=== PATIENT | male | born 1970 | race Caucasian/White ===

== ENCOUNTER 2016-12-18 13:46 | Emergency (ER) | payer OTHER ==
[2016-12-18 14:15] VITALS: PULSE 98; RESP 18; TEMP 98.3
--- NOTE | 2016-12-18 14:54 | ED ---
General Adult HPI - General Chief complaint: Chest Pain Stated complaint: Fall/Rib Pain Time Seen by Provider: 12/18/16 14:47 Source: patient, RN notes reviewed Mode of arrival: ambulatory Limitations: no limitations - History of Present Illness Initial comments: Patient 46-year-old male who presents emergency room today with a chief complaint of injury to the right side of his ribs 2 days. Patient states 2 days ago his brother's large dog jumped on him pushing backwards hitting his right ribs on the, and states he's had pain locally to this area. States that worse with cough, sneeze, certain movements. States using [id number] ibuprofen with little relief the symptoms. Patient denies any recent fever, chills, shortness of breath, chest pain, back pain, abdominal pain, nausea or vomiting, numbness or tingling, dysuria or hematuria, constipation or diarrhea, headaches or visual changes, or any other complaints. - Related Data Previous Rx's Medication Instructions Recorded Pantoprazole Sodium [Protonix] 40 mg PO ONCE #35 tablet. 09/22/14 Hydrocodone/Acetaminophen [[place] 1 each PO Q6HR PRN #20 tab 12/18/16 5-325] Ibuprofen [Motrin] 800 mg PO Q6HR PRN #30 tab 12/18/16 Allergies Allergy/AdvReac Type Severity Reaction Status Date / Time codeine Allergy Unknown Verified 12/18/16 14:15 venom-honey bee Allergy Unknown Verified 12/18/16 14:15 [bee venom (honey bee)] Cat Dander Allergy Unknown Uncoded 12/18/16 14:15 Review of Systems ROS Statement: Those systems with pertinent positive or pertinent negative responses have been documented in the HPI. ROS Other: All systems not noted in ROS Statement are negative. Past Medical History Additional Past Medical History / Comment(s): ULCER History of Any Multi-Drug Resistant Organisms: None Reported Past Surgical History: No Surgical Hx Reported Smoking Status: Current every day smoker Past Alcohol Use History: Occasional Past Drug Use History: None Reported General Exam - General Exam Comments Initial Comments: General: The patient is awake and alert, in no distress, and does not appear acutely ill. Eye: Pupils are equal, round and reactive to light, extra-ocular movements are intact. No nystagmus. There is normal conjunctiva bilaterally. No signs of icterus. Ears, nose, mouth and throat: There are moist mucous membranes and no oral lesions. Neck: The neck is supple, there is no tenderness or JVD. Cardiovascular: There is a regular rate and rhythm. No murmur, rub or gallop is appreciated. Respiratory: Lungs are clear to auscultation, respirations are non-labored, breath sounds are equal. No wheezes, stridor, rales, or rhonchi. Gastrointestinal: Soft, non-distended, non-tender abdomen without masses or organomegaly noted. There is no rebound or guarding present. No CVA tenderness. Bowel sounds are unremarkable. Musculoskeletal: Does have tenderness to the right lateral ribs. Bruising noted. Strength 5/5. Sensation intact. Pulses equal bilaterally 2+. Neurological: A&O x 3. CN II-XII intact, There are no obvious motor or sensory deficits. Coordination appears grossly intact. Speech is normal. Skin: Skin is warm and dry and no rashes or lesions are noted. Psychiatric: Cooperative, appropriate mood & affect, normal judgment. Limitations: no limitations Course Vital Signs 12/18/16 12/18/16 14:12 14:52 Temperature 98.3 F Pulse Rate 98 Respiratory 18 Rate Blood Pressure 168/116 135/82 O2 Sat by Pulse 97 Oximetry Medical Decision Making - Medical Decision Making X-ray reviewed does show evidence for possible nondisplaced right eighth rib fracture. No other acute abnormalities. Results were discussed with the patient. A be discharged home with pain medication. Advised that pain medicines may make him drowsy and not to use while at work. Patient states understanding and is in agreement. Disposition Clinical Impression: Closed traumatic nondisplaced fracture of rib Disposition: HOME SELF-CARE Condition: Good Instructions: Rib Fracture (ED) Additional Instructions: Please use medication as discussed. Please follow-up with family doctor in the next 2 days of symptoms have not improved. Please return to emergency room if the symptoms increase or worsen or for any other concerns. Prescriptions: Hydrocodone/Acetaminophen [[place] 5-325] 1 each PO Q6HR PRN #20 tab PRN Reason: Pain Ibuprofen [Motrin] 800 mg PO Q6HR PRN #30 tab PRN Reason: Pain Time of Disposition: 15:27
[2016-12-18 14:56] VITALS: BP 135/82
--- NOTE | 2016-12-18 15:17 | XR ---
EXAMINATION TYPE: XR chest 2V DATE OF EXAM: 12/18/2016 3:08 PM COMPARISON: NONE INDICATION: Right rib injury, pain TECHNIQUE: Single frontal view of the chest is obtained. FINDINGS: The heart size is normal. The pulmonary vasculature is normal. The lungs are clear. No pneumothorax is evident. Displaced rib fractures are not identified. Nondisplaced rib fracture of the posterior lateral rib is not excluded. This is likely artifact. IMPRESSION: 1. No acute pulmonary process. 2. Nondisplaced right eighth rib fracture is not entirely excluded. However, this is likely artifact extending beyond the cortical margin. Rib study can be performed if additional dedicated evaluation w ould be of benefit.
== END 2016-12-18 15:34 | disposition home or self-care (01) ==
LOC: EC 13:46
DX: S22.31XA Fracture of one rib, right side, initial encounter for closed fracture (principal); J30.81 Allergic rhinitis due to animal (cat) (dog) hair and dander; X58.XXXA Exposure to other specified factors, initial encounter; F17.200 Nicotine dependence, unspecified, uncomplicated; Z79.899 Other long term (current) drug therapy; Z88.5 Allergy status to narcotic agent; Z91.030 Bee allergy status; Z87.19 Personal history of other diseases of the digestive system
CPT/HCPCS: 71020; 99284

== ENCOUNTER 2018-12-09 15:38 | Emergency (ER) | payer OTHER ==
[2018-12-09 15:42] VITALS: BP 151/85; PULSE 91; RESP 16; TEMP 97.8
[2018-12-09] MEDS ORDERED: LORazepam 1 MG TAB PO STA (16:15)
--- NOTE | 2018-12-09 16:20 | ED ---
General Adult HPI - General Chief complaint: Psychiatric Symptoms Stated complaint: Depression Time Seen by Provider: 12/09/18 15:44 Source: patient, RN notes reviewed Mode of arrival: ambulatory Limitations: no limitations - History of Present Illness Initial comments: Patient is a pleasant 48-year-old male presenting to the emergency Department with complaints of depression. Symptoms have progressed over the past several months. Patient states he is sleeping a lot. Patient lacks motivation. Patient has not been eating as much is normal. Rare alcohol use. No street drug use. No new physical complaints. Patient does have associated anxiety. Patient denies suicidal or homicidal thoughts. No hallucinations. - Related Data Home Medications Medication Instructions Recorded Confirmed No Known Home Medications 12/09/18 12/09/18 Allergies Allergy/AdvReac Type Severity Reaction Status Date / Time venom-honey bee Allergy Anaphylaxis Verified 12/09/18 15:55 [bee venom (honey bee)] codeine AdvReac migraine Verified 12/09/18 15:55 Cat Dander Allergy Dyspnea Uncoded 12/09/18 15:55 Review of Systems ROS Statement: Those systems with pertinent positive or pertinent negative responses have been documented in the HPI. ROS Other: All systems not noted in ROS Statement are negative. Constitutional: Denies: fever Eyes: Denies: eye pain ENT: Denies: ear pain Respiratory: Denies: cough Cardiovascular: Denies: chest pain Endocrine: Denies: heat or cold intolerance Gastrointestinal: Denies: abdominal pain Genitourinary: Denies: dysuria Musculoskeletal: Denies: back pain Skin: Denies: rash Neurological: Denies: weakness Psychiatric: Reports: anxiety, depression. Denies: auditory hallucinations, visual hallucinations, homicidal thoughts, suicidal thoughts Past Medical History Additional Past Medical History / Comment(s): ULCER History of Any Multi-Drug Resistant Organisms: None Reported Past Surgical History: No Surgical Hx Reported Smoking Status: Current every day smoker Past Alcohol Use History: Occasional Past Drug Use History: None Reported General Exam Limitations: no limitations General appearance: alert, in no apparent distress Head exam: Present: atraumatic Eye exam: Present: normal appearance Respiratory exam: Present: normal lung sounds bilaterally Cardiovascular Exam: Present: regular rate, normal rhythm GI/Abdominal exam: Present: soft. Absent: tenderness Extremities exam: Present: normal inspection Neurological exam: Present: alert Psychiatric exam: Present: depressed Skin exam: Present: normal color Course Vital Signs 12/09/18 15:40 Temperature 97.8 F Pulse Rate 91 Respiratory 16 Rate Blood Pressure 151/85 O2 Sat by Pulse 98 Oximetry Medical Decision Making - Medical Decision Making Patient does not feel that he needs to be evaluated for placement. Patient denies suicidal thoughts. Patient states he tried to get in touch with a primary care physician however was told there was a one month wait. Patient is receptive to receiving follow-up for mental health as well as primary care and Ativan at this time. Mental health follow-up sheet was provided. Disposition Clinical Impression: Depression Disposition: HOME SELF-CARE Condition: Stable Instructions (If sedation given, give patient instructions): Depression (ED) Additional Instructions: Please follow-up with primary care physician in the next couple of days for recheck, number provided. Please follow-up with mental health services in the next couple of days, members have also been provided. Return for thoughts of self-harm, thoughts of hurting others, worsening symptoms or other concerns. Is patient prescribed a controlled substance at d/c from ED?: No Referrals: Brendon Robertson MD [STAFF PHYSICIAN] - 1-2 days Karine eMrlos MD [REFERRING] - 1-2 days Starr Casey III, MD [STAFF PHYSICIAN] - 1-2 days Time of Disposition: 16:19
== END 2018-12-09 16:34 | disposition home or self-care (01) ==
LOC: EC 15:38
DX: F32.9 Major depressive disorder, single episode, unspecified (principal); F17.200 Nicotine dependence, unspecified, uncomplicated; Z88.5 Allergy status to narcotic agent; Z91.09 Other allergy status, other than to drugs and biological substances; Z91.030 Bee allergy status
CPT/HCPCS: 99283

== ENCOUNTER 2019-01-13 15:07 | Inpatient (IN) | payer MEDICAID, OTHER ==
--- NOTE | 2019-01-13 16:42 | ED ---
General Adult HPI - General Source: patient, RN notes reviewed Mode of arrival: ambulatory Limitations: no limitations <Junior Harrison - Last Filed: 01/13/19 15:19> <Duke Banuelos - Last Filed: 01/13/19 18:39> - General Chief complaint: Psychiatric Symptoms Stated complaint: depression Time Seen by Provider: 01/13/19 15:07 - History of Present Illness Initial comments: This a 48-year-old male presents emergency department with past medical history significant for depression. Patient comes in today because he states that last few months is becoming more more depressed and is having more pressures his personal life and he is starting to think about suicide. Patient states he doesn't want to do it that is why he arrived here today. Patient denies any attempt recently. Patient states he did not take any pills he does not do any illegal drugs to does not drink. Patient denies any previous suicide attempt. Patient denies any physical complaints today. Patient denies headache patient denies numbness or weakness. Patient denies chest pain difficult breathing shortness of breath per patient denies any palpitations. Patient denies abdominal pain patient denies nausea vomiting diarrhea. (Junior Harrison) - Related Data Home Medications Medication Instructions Recorded Confirmed Omeprazole 20 mg PO BID 01/13/19 01/13/19 Ranitidine HCl [Zantac] 150 mg PO BID 01/13/19 01/13/19 buPROPion HCL [Wellbutrin SR] 150 mg PO BID 01/13/19 01/13/19 busPIRone HCl [Buspar] 10 mg PO TID 01/13/19 01/13/19 traZODone HCL [Desyrel] 1 - 2 tab PO HS 01/13/19 01/13/19 Allergies Allergy/AdvReac Type Severity Reaction Status Date / Time venom-honey bee Allergy Anaphylaxis Verified 01/13/19 15:50 [bee venom (honey bee)] codeine AdvReac migraine Verified 01/13/19 15:50 Cat Dander Allergy Dyspnea Uncoded 01/13/19 15:11 Review of Systems ROS Other: All systems not noted in ROS Statement are negative. <Junior Harrison - Last Filed: 01/13/19 15:19> ROS Other: All systems not noted in ROS Statement are negative. <Duke Banuelos - Last Filed: 01/13/19 18:39> ROS Statement: Those systems with pertinent positive or pertinent negative responses have been documented in the HPI. Past Medical History Additional Past Medical History / Comment(s): ULCER History of Any Multi-Drug Resistant Organisms: None Reported Past Surgical History: No Surgical Hx Reported Past Psychological History: Depression Smoking Status: Current every day smoker Past Alcohol Use History: Occasional Past Drug Use History: None Reported <Junior Harrison - Last Filed: 01/13/19 15:19> General Exam Limitations: no limitations <Junior Harrison - Last Filed: 01/13/19 15:19> - General Exam Comments Initial Comments: GENERAL: Patient is well-developed and well-nourished. Patient is nontoxic and well- hydrated and is in no acute distress. ENT: Neck is soft and supple. Oropharynx is clear. Moist mucous membranes. Neck has full range of motion without eliciting any pain. EYES: The sclera were anicteric and conjunctiva were pink and moist. Extraocular movements were intact and pupils were equal round and reactive to light. Eyelids were unremarkable. PULMONARY: Unlabored respirations. Good breath sounds bilaterally. No audible rales rhonchi or wheezing was noted. CARDIOVASCULAR: There is a regular rate and rhythm without any murmurs gallops or rubs. ABDOMEN: Soft and nontender with normal bowel sounds. SKIN: Skin is clear with no lesions or rashes and otherwise unremarkable. NEUROLOGIC: Patient is alert and oriented x3. Cranial nerves II through XII are grossly intact. Motor and sensory are also intact. Normal speech, volume and content. Symmetrical smile. MUSCULOSKELETAL: Normal extremities with adequate strength and full range of motion. PSYCHIATRIC: Patient states he is depressed and his been having some suicidal ideations. Patient is a very flat affect (Junior Harrison) Course <Duke Banuelos - Last Filed: 01/13/19 18:39> Vital Signs 01/13/19 15:07 Temperature 97.6 F Pulse Rate 92 Respiratory 18 Rate Blood Pressure 153/91 O2 Sat by Pulse 97 Oximetry - Reevaluation(s) Reevaluation #1: 01/13/19 18:34 The patient was endorsed me by Dr. Harrison at her shift change and was pending evaluation by EPS. Patient will be admitted to this facility for treatment of depression. 01/13/19 18:35 (Duke Banuelos) Medical Decision Making <Junior Harrison - Last Filed: 01/13/19 15:19> - Medical Decision Making Dr. Banuelos will be taking over the care at 5 PM (Junior Harrison) Disposition <Junior Harrison - Last Filed: 01/13/19 15:19> <Duke Banuelos - Last Filed: 01/13/19 18:39> Clinical Impression: Depression Disposition: TRANSFER TO PSYCH HOSP/UNIT Condition: Stable
[2019-01-13 18:36] LABS: Amphetamine Screen,Urine Not Detected (NotDetected); Barbiturate Screen,Urine Not Detected (NotDetected); Benzodiazepines Screen,Urine Not Detected (NotDetected); Cocaine Screen,Urine Not Detected (NotDetected); Methadone Screen, Urine Not Detected (NotDetected); Opiate Screen,Urine Not Detected (NotDetected); Oxycodone Screen, Urine Not Detected (NotDetected); Phencyclidine Screen,Urine Not Detected (NotDetected); Tricyclic Antidepressant,Urine Not Detected (NotDetected); Urn Cannabinoid Scrn Not Detected (NotDetected)
[2019-01-13] MEDS ORDERED: ACETAMINOPHEN TAB 325 MG TAB PO PRN (19:38)
[2019-01-13] MEDS ORDERED: MAGNESIUM HYDROXIDE 2,400 MG/10 ML CUP PO PRN (19:38)
[2019-01-13] MEDS ORDERED: ZIPRASIDONE 20 MG VIAL IM PRN (19:38)
[2019-01-13] MEDS ORDERED: LORazepam 2 MG/ML INJ IM PRN (19:43)
[2019-01-13] MEDS: buPROPion SR 150 MG TABLET.ER PO SCH (20:45)
[2019-01-13] MEDS: busPIRone HCl 10 MG TAB PO SCH (20:45)
[2019-01-13] MEDS: NICOTINE 14MG/24HR PATCH TRANSDERM SCH (21:24)
[2019-01-14] MEDS: NICOTINE 14MG/24HR PATCH TRANSDERM SCH (08:32)
[2019-01-14] MEDS: PANTOPRAZOLE 40 MG TABLET PO SCH (08:32)
[2019-01-14] MEDS: busPIRone HCl 10 MG TAB PO SCH (08:32)
[2019-01-14] MEDS: buPROPion SR 150 MG TABLET.ER PO SCH ×2 (08:32→20:51)
[2019-01-14 09:44] LABS: Basophils % (A) 1 %; Eosinophils # (A) 0.2 k/uL (0-0.7); Eosinophils % (A) 3 %; HCT 44.9 % (39.0-53.0); HGB 15.3 gm/dL (13.0-17.5); Lymphocytes # (A) 1.9 k/uL (1.0-4.8); Lymphocytes % (A) 31 %; MCH 31.1 pg (25.0-35.0); MCV 91.3 fL (80.0-100.0); Mean Platelet Volume 9.3; Monocytes # (A) 0.5 k/uL (0-1.0); Monocytes % (A) 9 %; Neutrophils # (A) 3.2 k/uL (1.3-7.7); Neutrophils % (A) 55 %; Platelet Count 165 k/uL (150-450); RBC 4.92 m/uL (4.30-5.90); RDW 14.1 % (11.5-15.5); WBC 5.9 k/uL (3.8-10.6)
[2019-01-14 09:48] LABS: Albumin 4.2 g/dL (3.5-5.0); Bilirubin, Delta 0.2 mg/dL (0.0-0.2); Bilirubin,Unconjugated 0.7 mg/dL (0.0-1.1); Calcium 9.4 mg/dL (8.4-10.2); Total Bilirubin 0.9 mg/dL (0.2-1.3); Total Protein 6.9 g/dL (6.3-8.2)
--- NOTE | 2019-01-14 11:16 | P.HP ---
Psychiatric H&P - . H&P Date: 01/21/19 History & Physical: Allergies Allergy/AdvReac Type Severity Reaction Status Date / Time venom-honey bee Allergy Anaphylaxis Verified 01/13/19 15:50 [bee venom (honey bee)] codeine AdvReac migraine Verified 01/13/19 15:50 Cat Dander Allergy Dyspnea Uncoded 01/13/19 15:11 Vital Signs Temp 98.0 F 01/14/19 06:07 Pulse 71 01/14/19 06:07 Resp 14 01/14/19 06:07 BP 90/53 01/14/19 06:07 Pulse Ox 97 01/13/19 19:24 Intake & Output 01/13/19 01/14/19 01/14/19 18:59 06:59 18:59 Weight 99.79 kg Laboratory Last Values Urine Opiates Screen Not Detected (NotDetected) 01/13/19 17:05 Ur Oxycodone Screen Not Detected (NotDetected) 01/13/19 17:05 Urine Methadone Screen Not Detected (NotDetected) 01/13/19 17:05 Ur Propoxyphene Screen Not Detected (NotDetected) 01/13/19 17:05 Ur Barbiturates Screen Not Detected (NotDetected) 01/13/19 17:05 U Tricyclic Antidepress Not Detected (NotDetected) 01/13/19 17:05 Ur Phencyclidine Scrn Not Detected (NotDetected) 01/13/19 17:05 Ur Amphetamines Screen Not Detected (NotDetected) 01/13/19 17:05 U Methamphetamines Scrn Not Detected (NotDetected) 01/13/19 17:05 U Benzodiazepines Scrn Not Detected (NotDetected) 01/13/19 17:05 Urine Cocaine Screen Not Detected (NotDetected) 01/13/19 17:05 U Marijuana (THC) Screen Not Detected (NotDetected) 01/13/19 17:05 Assessment and Plan Assessment: This a 48-year-old male presents emergency department with past medical history significant for depression. Patient comes in today because he states that last few months is becoming more more depressed and is having more pressures his personal life and he is starting to think about suicide. Patient states he doesn't want to do it that is why he arrived here today. Patient denies any attempt recently. Patient states he did not take any pills he does not do any illegal drugs to does not drink. Patient denies any previous suicide attempt. Patient denies any physical complaints today. Patient denies headache patient denies numbness or weakness. Patient denies chest pain difficult breathing shortness of breath per patient denies any palpitations. Patient denies abdominal pain patient denies nausea vomiting diarrhea. - Related Data Home Medications Medication Instructions Recorded Confirmed Omeprazole 20 mg PO BID 01/13/19 01/13/19 Ranitidine HCl [Zantac] 150 mg PO BID 01/13/19 01/13/19 buPROPion HCL [Wellbutrin SR] 150 mg PO BID 01/13/19 01/13/19 busPIRone HCl [Buspar] 10 mg PO TID 01/13/19 01/13/19 traZODone HCL [Desyrel] 1 - 2 tab PO HS 01/13/19 01/13/19 Allergies Allergy/AdvReac Type Severity Reaction Status Date / Time venom-honey bee Allergy Anaphylaxis Verified 01/13/19 15:50 [bee venom (honey bee)] codeine AdvReac migraine Verified 01/13/19 15:50 Cat Dander Allergy Dyspnea Uncoded 01/13/19 15:11 Past Medical History Additional Past Medical History / Comment(s): ULCER History of Any Multi-Drug Resistant Organisms: None Reported Past Surgical History: No Surgical Hx Reported Past Psychological History: Depression Smoking Status: Current every day smoker Past Alcohol Use History: Occasional Past Drug Use History: None Reported Musculoskeletal Examination - Abnormal/Involuntary Movements: [ tremors] Strength: [greater than antigravity (greater than/equal to 3/5) in all extremities:] Muscle Tone: [no impairment Gait: [grossly normal Station: [grossly normal Mental Status Examination - General Appearance: [ casual, appears older than stated age Speech/Language: [spontaneous soft] Attitude/Behavior: [cooperative, guarded, irritable, withdrawn, indifferent] Mood: [depressed 5/10, anxious 2/10, irritable, angry, fearful, hopelessness] Affect: [ flat, labile, blunted constricted] Orientation: [time, person, place situation] Thought Content: [wnl Risk Factors: [yes within the last week suicidal (ideation) Perception: [wnl, denies hallucinations (auditory, visual, tactile), other] Thought Processes: [ concrete, circumstantial, tangential] Concentration/Attention Span: [ impaired] [Per observation and interview with the patient] Recent Memory: [ impaired] [0 out of 3 in 3 minutes] Remote Memory: [wnl [past events, as related history] Intelligence: [ average] [based on history, based on vocabulary, syntax, grammar, and content] Judgement: [poor] [per patient's behavior/history of present illness] Insight: [ poor] [understanding severity of illness/history of present illness] Admitting Diagnosis: [bipolar disorder-depresed] Patient Strengths - Housing stability: [x] Able to vocalize needs: [x] Values and traditions: [x] Motivation, determination, readiness for change: [x] Setting and pursuing goals, hopes, dreams, aspirations: [x] Patient Limitations: [ pathological/unsupported environment, no interests, intellectual impairment, complicated medical illness, legal issues, lack of social supports Initial Plan of Care: [This is a 40-year-old male who was admitted on a formal [address] unit for depression, insomnia, and anxiety. He would be placed on 15 minute checks and usual protocol for that mental health unit. He'll be evaluated by medicine, psychiatry, social work, nursing staff and occupational therapy into a integrated [facility] therapeutic environment. A thorough biopsychosocial evaluation will be completed.. He is going to be started on Invega 3 mg by mouth daily at bedtime due to his racing thoughts and Lamictal 25 mg by mouth daily at bedtime for his mood instability. He'll be taken off his BuSpar and maintained on his Wellbutrin.] Estimated Length of Stay: [5 days] Initial Discharge Plan: [home, [facility], referred to therapist, partial hospital, intensive outpatient, residential placement, other] Prognosis: [ fair] Justification for Inpatient Hospitalization - [ delusions, agitation, anxiety, depression resulting in significant loss of functioning.] [Dangerous to self, others, or property with need for controlled environment.] [Emotional or behavioral conditions and complications requiring 24 hour medical and nursing care.] [Need for special drug therapy, or other therapeutic program requiring continuous hospitalization.] [Failure of social or occupational functioning.] [Inability to meet basic life and health needs.] (1) Bipolar 1 disorder Current Visit: Yes Status: Acute Priority: High Code(s): F31.9 - BIPOLAR DISORDER, UNSPECIFIED SNOMED Code(s): 256958136 Time with Patient: Greater than 30
[2019-01-14] MEDS: NICOTINE 7MG/24HR PATCH TRANSDERM SCH (19:46)
[2019-01-14] MEDS ORDERED: PRAMIPEXOLE 1 MG TAB PO SCH (21:00)
[2019-01-14] MEDS ORDERED: PALIPERIDONE 3 MG TAB.ER.24 PO SCH (21:00)
[2019-01-14] MEDS ORDERED: lamoTRIgine 25 MG TAB PO SCH (21:00)
--- NOTE | 2019-01-15 01:33 | CONS ---
CONSULTATION CHIEF COMPLAINT: Depression. HISTORY OF PRESENT ILLNESS: This gentleman presented to the emergency room with major depression and headaches. abdominal pain, nausea, vomiting. urgency, diabetes, etc. PAST MEDICAL HISTORY/FAMILY HISTORY/SOCIAL HISTORY: Otherwise unremarkable or noncontributory and can be found in his H and P. PHYSICAL EXAM: Blood pressure is 138/80. MMODL / IJN: [id number] /
--- NOTE | 2019-01-15 01:35 | CONS ---
CONSULTATION CONTINUATION: Skin color was normal. Skin is warm, dry. Lymph nodes not enlarged. Head, ears, eyes, nose, mouth, and throat were normal. Chest is clear. Cardiac exam is normal. Abdomen is soft, nontender. Extremities are normal. Neurologically he is intact. His countenance suggested depression. IMPRESSION: Major depression with suicidal thoughts. RECOMMENDATIONS: None this time. MMODL / IJN: [id number] /
[2019-01-15] MEDS: NICOTINE 7MG/24HR PATCH TRANSDERM SCH (07:54)
[2019-01-15] MEDS: NICOTINE 14MG/24HR PATCH TRANSDERM SCH (07:54)
[2019-01-15] MEDS: PANTOPRAZOLE 40 MG TABLET PO SCH (07:54)
[2019-01-15] MEDS: buPROPion SR 150 MG TABLET.ER PO SCH ×2 (07:54→20:15)
--- NOTE | 2019-01-15 11:16 | P.PN ---
Subjective Progress Note Date: 01/15/19 Principal diagnosis: bipolar disorder-depressed Chart reviewed, discussed with nursing staff, discussed in team today. I feel less likely to harm myself today still depressed and anxious but feel more encouraged. He is able to sleep right away last night but instead is sleep all night. Objective - Vital Signs Vital signs: Vital Signs Temp 98.0 F 01/15/19 06:13 Pulse 77 01/15/19 06:13 Resp 15 01/15/19 06:13 BP 110/68 01/15/19 06:13 Pulse Ox 97 01/13/19 19:24 - Labs CBC & Chem 7: 01/14/19 09:14 01/14/19 09:14 Assessment and Plan Assessment: This a 48-year-old male presents emergency department with past medical history significant for depression. Patient comes in today because he states that last few months is becoming more more depressed and is having more pressures his personal life and he is starting to think about suicide. Patient states he doesn't want to do it that is why he arrived here today. Patient denies any attempt recently. Patient states he did not take any pills he does not do any illegal drugs to does not drink. Patient denies any previous suicide attempt. Patient denies any physical complaints today. Patient denies headache patient denies numbness or weakness. Patient denies chest pain difficult breathing shortness of breath per patient denies any palpitations. Patient denies abdominal pain patient denies nausea vomiting diarrhea. - Mental Status Examination - General Appearance: [ casual, appears older than stated age Speech/Language: [spontaneous soft] Attitude/Behavior: [cooperative, guarded, irritable, withdrawn, indifferent] Mood: [depressed 5/10, anxious 2/10, irritable, angry, fearful, hopelessness] Affect: [ flat, labile, blunted constricted] Orientation: [time, person, place situation] Thought Content: [wnl Risk Factors: [yes within the last week suicidal (ideation) Perception: [wnl, denies hallucinations (auditory, visual, tactile), other] Thought Processes: [ concrete, circumstantial, tangential] Concentration/Attention Span: [ impaired] [Per observation and interview with the patient] Recent Memory: [ impaired] [0 out of 3 in 3 minutes] Remote Memory: [wnl [past events, as related history] Intelligence: [ average] [based on history, based on vocabulary, syntax, gr ammar, and content] Judgement: [poor] [per patient's behavior/history of present illness] Insight: [ poor] [understanding severity of illness/history of present illness] Admitting Diagnosis: [bipolar disorder-depressed] Patient Limitations: [ pathological/unsupported environment, no interests, intellectual impairment, complicated medical illness, legal issues, lack of social supports Initial Plan of Care: [This is a 40-year-old male who was admitted on a formal [address] unit for depression, insomnia, and anxiety. He would be placed on 15 minute checks and usual protocol for that mental health unit. He'll be evaluated by medicine, psychiatry, social work, nursing staff and occupational therapy into a integrated [facility] therapeutic environment. A thorough biopsychosocial evaluation will be completed.. He is going to be started on Invega 3 mg by mouth daily at bedtime due to his racing thoughts and Lamictal 25 mg by mouth daily at bedtime for his mood instability. He'll be taken off his BuSpar and maintained on his Wellbutrin. 01/15/2019: Chart reviewed and discussed in detail and increase of Invega to 9 mg by mouth daily at bedtime, increase Lamictal to 50 mg by mouth daily at bedtime. Maintain 15 minute checks and encourage participation in [facility] therapeutic environment including groups.] (1) Bipolar 1 disorder Current Visit: Yes Status: Acute Priority: High Code(s): F31.9 - BIPOLAR DISORDER, UNSPECIFIED SNOMED Code(s): 968579870 Time with Patient: Less than 30
[2019-01-15] MEDS: lamoTRIgine 25 MG TAB PO SCH (20:15)
[2019-01-15] MEDS: PRAMIPEXOLE 0.5 MG TAB PO SCH (20:16)
[2019-01-15] MEDS ORDERED: PALIPERIDONE 6 MG TAB.ER.24 PO SCH (21:00)
[2019-01-16] MEDS: NICOTINE 14MG/24HR PATCH TRANSDERM SCH (08:40)
[2019-01-16] MEDS: buPROPion SR 150 MG TABLET.ER PO SCH ×2 (08:40→20:13)
[2019-01-16] MEDS: PANTOPRAZOLE 40 MG TABLET PO SCH (08:40)
[2019-01-16] MEDS: NICOTINE 7MG/24HR PATCH TRANSDERM SCH ×2 (08:55→17:27)
--- NOTE | 2019-01-16 11:48 | P.PN ---
Progress Note - Text Interval history: The patient is found in his room he follows me to an interview room. He reports his mood is anxious. He's been avoiding groups as crowds will intensify his anxiety. He reports he slept last night appetite stable he plans on showering. We reviewed his psychotropic medications he had several questions. He has concerns regarding the invega. He feels that it may be causing excessive sedation. We reviewed the diagnosis given bipolar 1 disorder. Today he indicates he has had no history of hypomanic or manic episodes. We carefully reviewed criteria for each type of episode. Naturally this conversation could likely be different from the one he had with Dr. Cohen just 2 days ago. The patient states he does not wish to continue the invega as a mood stabilizer. We discussed his anxiety symptoms. He states he's been on the Wellbutrin from his primary care physician for about one month. Historically he has taken both Zoloft and Lexapro and both seem to help depression and anxiety but both were discontinued due to lack of affordability. Mental status exam: The patient is alert he is dressed in hospital attire eye contact is appropriate hygiene grooming adequate. Speech is fluent spontaneous nonpressured. He endorses an anxious mood. He reports no hopelessness thinking no suicidal ideation intent or plan. He is reporting no auditory or visual hallucinations or any specific delusions there is no observed evidence of psychosis. He demonstrates no tangential thinking loose associations or flight of ideas he was not circumstantial. At this time he does not appear hypomanic or manic. He demonstrates no verbal or physical aggressiveness. Affect is appropriately expressive. Plan: We spent some time today reviewing his presenting symptoms. He feels strongly about not using the invega and we will discontinue that medication. We will continue the Lamictal in case there is a bipolar disorder. Trazodone 50 Motrin to bedtime will be used at bedtime for sleep. We discussed possibly changing the Wellbutrin to either Zoloft or Lexapro as he has been successful with those in the past, at least that way we're addressing mood and anxiety symptoms. We will monitor for any signs of hypomania or adelso. He is encouraged to attend some groups despite his anxiety. Vital signs reviewed.
[2019-01-16] MEDS: MAG HYDROX/AL HYDROX/SIMETH 30 ML CUP PO PRN (17:25)
[2019-01-16] MEDS: PRAMIPEXOLE 0.5 MG TAB PO SCH (20:14)
[2019-01-16] MEDS: lamoTRIgine 25 MG TAB PO SCH (20:14)
[2019-01-16] MEDS ORDERED: traZODone HCL 50 MG TAB PO SCH (21:00)
[2019-01-16] MEDS: LORazepam 1 MG TAB PO PRN (23:06)
[2019-01-17] MEDS: PANTOPRAZOLE 40 MG TABLET PO SCH (08:59)
[2019-01-17] MEDS: NICOTINE 14MG/24HR PATCH TRANSDERM SCH (08:59)
[2019-01-17] MEDS: buPROPion SR 150 MG TABLET.ER PO SCH (08:59)
[2019-01-17] MEDS: LORazepam 1 MG TAB PO PRN ×2 (09:01→18:31)
--- NOTE | 2019-01-17 12:39 | P.PN ---
Progress Note - Text Interval history: The patient is found in the library he follows me to an interview room. He indicates his mood is anxious he states he had a panic attack last evening and another one today. Concerned about anxiety symptoms. He continues to have some difficulty with sleep. We decided to increase the trazodone further. It appears he is getting that second dose of Wellbutrin at bedtime as well. We decided we would taper off of Wellbutrin and make it a morning dose only for a few days then discontinue. We reviewed his prior expe riences with Lexapro and Zoloft. He states that the Lexapro was helpful for mood symptoms and cause no side effect we decided to initiate that medication. He has been attending groups. Appetite stable. He is endorsing no racing thoughts year debility or other symptoms of hypomania or adelso. Mental status exam: The patient is alert he is dressed in his own clothing hygiene grooming are adequate. He reports no suicidal or homicidal ideation intent or plan. He reports no auditory or visual hallucinations or any specific delusions. He is demonstrating no verbal or physical aggressiveness. He is focused on anxiety symptoms. Speech is fluent spontaneous nonpressured. He demonstrates no tangential thinking loose associations or flight of ideas. Insight and judgment improving. He remains oriented to person place and date. He demonstrates no involuntary repetitive movements. Affect is constricted. Plan: The patient will be started unless for 10 mg daily as part of a taper off of the medication Wellbutrin will be reduced to 150 mg in the morning. Not taking at bedtime may also assist in his sleep. We will increase trazodone 100 mg at bedtime. We will consider using something like Vistaril if needed for anxiety. We will monitor him for safety and encourage participation in the milieu.
[2019-01-17] MEDS: ESCITALOPRAM 10 MG TAB PO SCH (12:49)
[2019-01-17] MEDS: NICOTINE 7MG/24HR PATCH TRANSDERM SCH ×2 (15:53→15:54)
[2019-01-17] MEDS: PRAMIPEXOLE 0.5 MG TAB PO SCH (20:33)
[2019-01-17] MEDS: traZODone HCL 100 MG TAB PO SCH (20:33)
[2019-01-17] MEDS: lamoTRIgine 25 MG TAB PO SCH (20:33)
[2019-01-17] MEDS: MAG HYDROX/AL HYDROX/SIMETH 30 ML CUP PO PRN (20:34)
[2019-01-18] MEDS ORDERED: buPROPion SR 150 MG TABLET.ER PO SCH (09:00)
[2019-01-18] MEDS: ESCITALOPRAM 10 MG TAB PO SCH (09:16)
[2019-01-18] MEDS: NICOTINE 14MG/24HR PATCH TRANSDERM SCH ×2 (09:16→13:39)
[2019-01-18] MEDS: PANTOPRAZOLE 40 MG TABLET PO SCH (09:17)
--- NOTE | 2019-01-18 12:02 | P.PN ---
Subjective Progress Note Date: 01/18/19 Principal diagnosis: bipolar disorder-depressed Chart reviewed, discussed with nursing staff, discussed in team today. I feel less likely to harm myself today still depressed and anxious but feel more encouraged. He is able to sleep right away last night but instead is sleep all night. 01/18/2019: Chart reviewed, discussed with nursing staff and discussed with cov ering physician change in medications. He still remains depressed and anxious and asked quite frequently about getting medications for his anxiety. He does not bring up any suicidal homicidal ideation today. He slept well last night. Objective - Vital Signs Vital signs: Vital Signs Temp 97.7 F 01/18/19 00:06 Pulse 76 01/18/19 00:06 Resp 16 01/18/19 00:06 BP 108/63 01/18/19 00:06 Pulse Ox 97 01/13/19 19:24 Intake & Output 01/17/19 01/18/19 01/18/19 18:59 06:59 18:59 Weight 101.5 kg - Labs CBC & Chem 7: 01/14/19 09:14 01/14/19 09:14 Assessment and Plan Assessment: This a 48-year-old male presents emergency department with past medical history significant for depression. Patient comes in today because he states that last few months is becoming more more depressed and is having more pressures his personal life and he is starting to think about suicide. Patient states he doesn't want to do it that is why he arrived here today. Patient denies any attempt recently. Patient states he did not take any pills he does not do any illegal drugs to does not drink. Patient denies any previous suicide attempt. Patient denies any physical complaints today. Patient denies headache patient denies numbness or weakness. Patient denies chest pain difficult breathing shortness of breath per patient denies any palpitations. Patient denies abdominal pain patient denies nausea vomiting diarrhea. - Mental Status Examination - General Appearance: [ casual, appears older than stated age Speech/Language: [spontaneous soft] Attitude/Behavior: [cooperative, guarded, irritable, withdrawn, indifferent] Mood: [depressed 5/10, anxious 2/10, irritable, angry, fearful, hopelessness] Affect: [ flat, labile, blunted constricted] Orientation: [time, person, place situation] Thought Content: [wnl Risk Factors: [yes within the last week suicidal (ideation) Perception: [wnl, denies hallucinations (auditory, visual, tactile), other] Thought Processes: [ concrete, circumstantial, tangential] Concentration/Attention Span: [ impaired] [Per observation and interview with the patient] Recent Memory: [ impaired] [0 out of 3 in 3 minutes] Remote Memory: [wnl [past events, as related history] Intelligence: [ average] [based on history, based on vocabulary, syntax, grammar, and content] Judgement: [poor] [per patient's behavior/history of present illness] Insight: [ poor] [understanding severity of illness/history of present illness] Admitting Diagnosis: [bipolar disorder-depressed] Patient Limitations: [ pathological/unsupported environment, no interests, intellectual impairment, complicated medical illness, legal issues, lack of social supports Initial Plan of Care: [This is a 40-year-old male who was admitted on a formal [address] unit for depression, insomnia, and anxiety. He would be placed on 15 minute checks and usual protocol for that mental health unit. He'll be evaluated by medicine, psychiatry, social work, nursing staff and occupational therapy into a integrated [facility] therapeutic environment. A thorough biopsychosocial evaluation will be completed.. He is going to be started on Invega 3 mg by mouth daily at bedtime due to his racing thoughts and Lamictal 25 mg by mouth daily at bedtime for his mood instability. He'll be taken off his BuSpar and maintained on his Wellbutrin. 01/15/2019: Chart reviewed and discussed in detail and increase of Invega to 9 mg by mouth daily at bedtime, increase Lamictal to 50 mg by mouth daily at bedtime. Maintain 15 minute checks and encourage participation in [facility] therapeutic environment including groups. 01/16/2019: Chart review and discussed in detail regarding the increase Invega at bedtime Lamictal increase to 75 mg at bedtime in addition of Lexapro seems to be positive for him. He still remains on 15 minute checks and encourage participation in [facility] environment which he does not do.] (1) Bipolar 1 disorder Current Visit: Yes Status: Acute Priority: High Code(s): F31.9 - BIPOLAR DISORDER, UNSPECIFIED SNOMED Code(s): 425722332
[2019-01-18] MEDS: traZODone HCL 100 MG TAB PO SCH (19:58)
[2019-01-18] MEDS ORDERED: lamoTRIgine 100 MG TAB PO SCH (21:00)
[2019-01-19 06:47] VITALS: BP 122/68; PULSE 73; RESP 18; TEMP 98.3
[2019-01-19] MEDS: PANTOPRAZOLE 40 MG TABLET PO SCH (08:56)
[2019-01-19] MEDS: NICOTINE 14MG/24HR PATCH TRANSDERM SCH (08:57)
--- NOTE | 2019-01-19 12:13 | P.DS ---
Providers Date of admission: 01/13/19 18:10 Expected date of discharge: 01/19/19 Attending physician: Ousmane Cohen DO Consults: 01/13/19 19:38 Consult Physician Routine Consulting Provider: Yash Wiseman Consult Reason/Comments: H & P and medical care Do you want consulting provider notified?: Yes Primary care physician: Yash Wiseman - Discharge Diagnosis(es) (1) Bipolar 1 disorder Allergies Allergy/AdvReac Type Severity Reaction Status Date / Time venom-honey bee Allergy Anaphylaxis Verified 01/13/19 15:50 [bee venom (honey bee)] codeine AdvReac migraine Verified 01/13/19 15:50 Cat Dander Allergy Dyspnea Uncoded 01/13/19 15:11 Vital Signs Temp 98.0 F 01/14/19 06:07 Pulse 71 01/14/19 06:07 Resp 14 01/14/19 06:07 BP 90/53 01/14/19 06:07 Pulse Ox 97 01/13/19 19:24 Intake & Output 01/13/19 01/14/19 01/14/19 18:59 06:59 18:59 Weight 99.79 kg Laboratory Last Values Urine Opiates Screen Not Detected (NotDetected) 01/13/19 17:05 Ur Oxycodone Screen Not Detected (NotDetected) 01/13/19 17:05 Urine Methadone Screen Not Detected (NotDetected) 01/13/19 17:05 Ur Propoxyphene Screen Not Detected (NotDetected) 01/13/19 17:05 Ur Barbiturates Screen Not Detected (NotDetected) 01/13/19 17:05 U Tricyclic Antidepress Not Detected (NotDetected) 01/13/19 17:05 Ur Phencyclidine Scrn Not Detected (NotDetected) 01/13/19 17:05 Ur Amphetamines Screen Not Detected (NotDetected) 01/13/19 17:05 U Methamphetamines Scrn Not Detected (NotDetected) 01/13/19 17:05 U Benzodiazepines Scrn Not Detected (NotDetected) 01/13/19 17:05 Urine Cocaine Screen Not Detected (NotDetected) 01/13/19 17:05 U Marijuana (THC) Screen Not Detected (NotDetected) 01/13/19 17:05 Assessment and Plan Assessment: This a 48-year-old male presents emergency department with past medical history significant for depression. Patient comes in today because he states that last few months is becoming more more depressed and is having more pressures his personal life and he is starting to think about suicide. Patient states he doesn't want to do it that is why he arrived here today. Patient denies any a ttempt recently. Patient states he did not take any pills he does not do any illegal drugs to does not drink. Patient denies any previous suicide attempt. Patient denies any physical complaints today. Patient denies headache patient denies numbness or weakness. Patient denies chest pain difficult breathing shortness of breath per patient denies any palpitations. Patient denies abdominal pain patient denies nausea vomiting diarrhea. - Related Data Home Medications Medication Instructions Recorded Confirmed Omeprazole 20 mg PO BID 01/13/19 01/13/19 Ranitidine HCl [Zantac] 150 mg PO BID 01/13/19 01/13/19 buPROPion HCL [Wellbutrin SR] 150 mg PO BID 01/13/19 01/13/19 busPIRone HCl [Buspar] 10 mg PO TID 01/13/19 01/13/19 traZODone HCL [Desyrel] 1 - 2 tab PO HS 01/13/19 01/13/19 Allergies Allergy/AdvReac Type Severity Reaction Status Date / Time venom-honey bee Allergy Anaphylaxis Verified 01/13/19 15:50 [bee venom (honey bee)] codeine AdvReac migraine Verified 01/13/19 15:50 Cat Dander Allergy Dyspnea Uncoded 01/13/19 15:11 Past Medical History Additional Past Medical History / Comment(s): [facility]LCER History of Any Multi-Drug Resistant Organisms: None Reported Past Surgical History: No Surgical Hx Reported Past Psychological History: Depression Smoking Status: Current every day smoker Past Alcohol Use History: Occasional Past Drug Use History: None Reported Musculoskeletal Examination - Abnormal/Involuntary Movements: [ tremors] Strength: [greater than antigravity (greater than/equal to 3/5) in all extremities:] Muscle Tone: [no impairment Gait: [grossly normal Station: [grossly normal Mental Status Examination - General Appearance: [ casual, appears older than stated age Speech/Language: [spontaneous soft] Attitude/Behavior: [cooperative, guarded, irritable, withdrawn, indifferent] Mood: [depressed 5/10, anxious 2/10, irritable, angry, fearful, hopelessness] Affect: [ flat, labile, blunted constricted] Orientation: [time, person, place situation] Thought Content: [wnl Risk Factors: [yes within the last week suicidal (ideation) Perception: [wnl, denies hallucinations (auditory, visual, tactile), other] Thought Processes: [ concrete, circumstantial, tangential] Concentration/Attention Span: [ impaired] [Per observation and interview with the patient] Recent Memory: [ impaired] [0 out of 3 in 3 minutes] Remote Memory: [wnl [past events, as related history] Intelligence: [ average] [based on history, based on vocabulary, syntax, grammar, and content] Judgement: [poor] [per patient's behavior/history of present illness] Insight: [ poor] [understanding severity of illness/history of present illness] Current Visit: Yes Status: Acute Priority: High Hospital Course: Plan of Care: [This is a 40-year-old male who was admitted on a formal [address] unit for depression, insomnia, and anxiety. He would be placed on 15 minute checks and usual protocol for that mental health unit. He'll be evaluated by medicine, psychiatry, social work, nursing staff and occupational therapy into a integrated [facility] therapeutic environment. A thorough biopsychosocial evaluation will be completed.. He is going to be started on Invega 3 mg by mouth daily at bedtime due to his racing thoughts and Lamictal 25 mg by mouth daily at bedtime for his mood instability. He'll be taken off his BuSpar and maintained on his Wellbutrin. 01/15/2019: Chart reviewed and discussed in detail and increase of Invega to 9 mg by mouth daily at bedtime, increase Lamictal to 50 mg by mouth daily at bedtime. Maintain 15 minute checks and encourage participation in [facility] therapeutic environment including groups. 01/16/2019: Chart review and discussed in detail regarding the increase Invega at bedtime Lamictal increase to 75 mg at bedtime in addition of Lexapro seems to be positive for him. He still remains on 15 minute checks and encourage participation in [facility] milieu environment which he does not do. Mental status examination time of discharge 01/19/2019 12:11 PM The patient presents alert, pleasant, and cooperative. There calmly seated without any agitated behavior. [He] reports that [his] mood is good. Affect is congruent and euthymic. [He] deny having any suicidal or homicidal ideation intent or plan. [He] denies any auditory or visual hallucinations. There is no evidence of any delusional thought content. [His] thought process is linear and goal-directed. [His] speech is fluent and nonpressured. [His] memory and concentration is grossly intact for the purposes of this session. Working diagnoses at the time of discharge: Bipolar depressed stable and early remission ] Patient Condition at Discharge: Stable Plan - Discharge Summary New Discharge Prescriptions: New traZODone HCL [Desyrel] 100 mg PO HS 30 Days #30 tab Nicotine 7Mg/24Hr Patch [Habitrol] 1 patch TRANSDERM DAILY 30 Days #30 patch lamoTRIgine [LaMICtal] 100 mg PO 2100 30 Days #30 tab Escitalopram [Lexapro] 20 mg PO 2100 30 Days #30 tab Discontinued busPIRone HCl [Buspar] 10 mg PO TID Ranitidine HCl [Zantac] 150 mg PO BID Omeprazole 20 mg PO BID traZODone HCL [Desyrel] 1 - 2 tab PO HS buPROPion HCL [Wellbutrin SR] 150 mg PO BID Discharge Medication List Escitalopram [Lexapro] 20 mg PO 2100 30 Days #30 tab 01/19/19 [Rx] Nicotine 7Mg/24Hr Patch [Habitrol] 1 patch TRANSDERM DAILY 30 Days #30 patch 01/19/19 [Rx] lamoTRIgine [LaMICtal] 100 mg PO 2100 30 Days #30 tab 01/19/19 [Rx] traZODone HCL [Desyrel] 100 mg PO HS 30 Days #30 tab 01/19/19 [Rx] Follow up Appointment(s)/Referral(s): [facility]Outside[facility] - 01/25/19 10:00 am ([place] ) Yash Wiseman MD [Primary Care Provider] - 1-2 days Discharge Disposition: HOME SELF-CARE
[2019-01-19] MEDS: LORazepam 1 MG TAB PO PRN (12:52)
[2019-01-19] MEDS ORDERED: ESCITALOPRAM 20 MG TAB PO SCH (21:00)
== END 2019-01-19 14:02 | disposition home or self-care (01) | DRG 885 ==
LOC: EC 15:07 → 3MHU 18:10
PROVIDERS: ADMIT Psychiatry & Neurology Psychiatry; ATTEND Psychiatry & Neurology Psychiatry
DX: F31.9 Bipolar disorder, unspecified (principal); R45.851 Suicidal ideations; F17.210 Nicotine dependence, cigarettes, uncomplicated; E11.9 Type 2 diabetes mellitus without complications; F41.0 Panic disorder [episodic paroxysmal anxiety]; G47.00 Insomnia, unspecified; Z79.899 Other long term (current) drug therapy; Z88.5 Allergy status to narcotic agent; Z91.030 Bee allergy status; R51 Headache
CPT/HCPCS: 80053; 80306; 82248; 84443; 85025; 99285